=== PATIENT | female | born 1995 | race Caucasian/White ===

== ENCOUNTER → 2016-07-02 | Outpatient (CLI) | payer BC, OTHER | LOC: MW.CHOBGYN 16:19 | PROVIDERS: ATTEND Nurse Practitioner Women's Health | DX: Z12.4 Encounter for screening for malignant neoplasm of cervix (principal) | CPT/HCPCS: G0145 ==

== ENCOUNTER → 2016-07-15 | Outpatient (CLI) | payer BC, OTHER ==
--- NOTE | 2016-07-17 20:11 | US ---
EXAMINATION: Limited soft tissue ultrasound of the abdomen HISTORY: Mass COMPARISON: None TECHNIQUE: Grayscale, color Doppler, power Doppler, and real-time images obtained of the region of c oncern just left of the umbilicus. FINDINGS: There is an irregular shadowing hypoechoic mass with radiating spicular margins demonstrat ed within the immediate subcutaneous tissue of the region of concern. This measures approximately 1. 7 x 2.7 cm. This does not appear to extend into the abdominal cavity. No underlying abdominal wall d efect. Mild internal color Doppler flow is noted with mildly increased peripheral flow. IMPRESSION: 1. There is a suspicious subcutaneous spiculated mass underlying the region of concern. This measure s 1.7 x 2.7 cm. Tissue sampling is recommended for definitive diagnosis, this is amenable to ultraso und-guided biopsy.
== END | disposition home or self-care (01) ==
LOC: MW.US 09:07
PROVIDERS: ATTEND Nurse Practitioner Women's Health
DX: R22.2 Localized swelling, mass and lump, trunk (principal)
CPT/HCPCS: 76705; 76705-26

== ENCOUNTER → 2016-07-24 | Outpatient (CLI) | payer BC, OTHER ==
--- NOTE | 2016-07-24 13:59 | US ---
EXAMINATION: Ultrasound guided soft tissue core biopsy. HISTORY: Abnormal subcutaneous mass just left lateral to the umbilicus. COMPARISON: 07/15/2016 TECHNIQUE: The procedure, risks, and benefits were discussed with the patient. Written informed cons ent was obtained. The overlying area was sterilely prepped and draped. 1% lidocaine was administered for local anesthesia. The mass was approached from the left lateral aspect of the skinfold. A 14-ga uge trocar was advanced to the edge of the mass. A total of 4 16-gauge core biopsies were obtained. There was a minimal amount of postprocedural bleeding which stopped with pressure. The patient othe rwise tolerated the procedure well. No immediate complications. IMPRESSION: 1. Successful ultrasound-guided core biopsy of a left periumbilical soft tissue mass.
== END | disposition home or self-care (01) ==
LOC: MW.US 08:54
PROVIDERS: ATTEND Nurse Practitioner Women's Health
DX: R22.2 Localized swelling, mass and lump, trunk (principal)
CPT/HCPCS: 20206; 76942-26-LT; 76942-LT; 88305